=== PATIENT | female | born 2000 | race Caucasian/White ===

== ENCOUNTER 2020-10-30 08:53 | Outpatient (REF) | payer BC, SELFPAY | END 2020-10-30 08:54 | disposition home or self-care (01) | LOC: HO.SCI 08:53 | DX: Z13.89 Encounter for screening for other disorder (principal) ==

== ENCOUNTER 2020-10-30 15:15 | Outpatient (REF) | payer BC, SELFPAY ==
--- NOTE | ~2020-10-30 | MR_ITS ---
EXAMINATION: MR THORACIC SPINE WITHOUT AND WITH CONTRAST CLINICAL INFORMATION: Paresthesias. Back pain. COMPARISON: No relevant prior imaging. TECHNIQUE: Multiplanar MR imaging of the thoracic spine was performed without and with contrast. A total of 7 mL Gadavist was utilized for this examination. FINDINGS: Alignment is normal. Vertebral heights are preserved. No acute bone marrow signal changes. Intervertebral disc height and signal intensity is maintained at all levels. Annular contours are normal and there is no canal or neuroforaminal compromise. No cord compression or abnormal intramedullary signal changes. Postcontrast images reveal no abnormal intradural enhancement. Limited visualization of intrathoracic anatomy reveals no abnormal finding. Specifically no paraspinal soft tissue mass or collection. MR/MR thoracic spine wo/w con IMPRESSION: Normal thoracic spine MRI.
== END 2020-10-30 15:16 | disposition home or self-care (01) ==
LOC: HO.MRI 15:15
PROVIDERS: Visit Provider Psychiatry & Neurology Neurology
DX: M54.6 Pain in thoracic spine (principal); R20.2 Paresthesia of skin
CPT/HCPCS: 72157; A9585